=== PATIENT | female | born 1965 | race Caucasian/White ===

== ENCOUNTER 2016-10-24 07:08 | Emergency (ER) | payer OTHER ==
[~2016-10-24] VITALS: Ht 160 cm; Wt 80.2 kg
[~2016-10-24 07:08] MED LIST: BENICAR HCT 201 EACH; COLACE100 MG PO; FLEXERIL10 MG PO; IBUPROFEN200 M1 PO; LEVAQUIN750 MG PO; LOSARTAN-HCTZ1 EACH PO; MOTRIN600 MG PO; MOTRIN800 MG PO; OMEPRAZOLE40 M1 PO; PERCOCET 5/31 TABLET PO; PREDNISONE20 MG PO; RANITIDINE HCL300 MG PO; TAMIFLU75 MG PO; VENTOLIN HFA18 GM IH; VICOPROFEN1 TABLET PO
[2016-10-24 07:46] LABS: HEMATOCRIT 35.9 % (36.0-46.0); MCH 28.1 PG (29.0-34.0); MCHC 33.1 G/DL (30.0-36.0); MCV 84.9 FL (83-99); MEAN PLAT.VOLUME 9.2 uM^3 (9.5-12.4); PLATELET COUNT 268 K/uL (156-360); RBC DIS.WIDTH-CV 12.2 % (11.8-14.6); RBC DIS.WIDTH-SD 37.3 % (39-53); RED BLOOD COUNT 4.23 M/uL (3.80-5.20); WHITE BLOOD COUNT 8.9 K/uL (4.1-10.2)
[2016-10-24 07:56] LABS: CHLORIDE 104 mEq/L (99-109); POTASSIUM 3.6 mEq/L (3.7-5.4); SODIUM 140 mEq/L (136-147)
[2016-10-24 07:58] LABS: GLUCOSE 105 mg/dL (70-99)
[2016-10-24 07:59] LABS: ANION GAP 7 MEQ/L (2-14)
[2016-10-24 08:01] LABS: GFR ESTIMATE (CALCULATED) > 59 mL/min/
[2016-10-24 08:02] LABS: UREA NITROGEN (BUN) 15 mg/dL (9-23)
[2016-10-24 08:07] LABS: TROP-I INTERPRETATION NEGATIVE; TROPONIN-I < 0.01 ng/mL (0.0-0.30)
[2016-10-24] MEDS ORDERED: PREDNISONE20 MG PO (09:00)
[2016-10-24] MEDS ORDERED: HYCODAN SYRUP480 ML PO (09:00)
[2016-10-24] MEDS ORDERED: VENTOLIN HFA18 GM IH (09:00)
[2016-10-24 09:13] VITALS: BP 158/71
== END 2016-10-24 09:14 | disposition home or self-care (01) ==
LOC: EME 07:08
PROVIDERS: Nurse Practitioner Family
DX: J06.9 Acute upper respiratory infection, unspecified (principal); I10 Essential (primary) hypertension
CPT/HCPCS: 71020; 80048; 84484; 85027; 93005; 99281; 99284; J7512

== ENCOUNTER 2017-06-05 22:09 | Emergency (ER) | payer SELFPAY ==
[~2017-06-05] VITALS: Ht 157.5 cm; Wt 77.3 kg
[~2017-06-05 22:09] MED LIST changes: +HYCODAN SYRUP480 ML PO
[2017-06-05 22:52] LABS: HEMATOCRIT 32.8 % (36.0-46.0); MCH 27.5 PG (29.0-34.0); MCHC 32.9 G/DL (30.0-36.0); MCV 83.5 FL (83-99); MEAN PLAT.VOLUME 9.7 uM^3 (9.5-12.4); PLATELET COUNT 232 K/uL (156-360); RBC DIS.WIDTH-CV 11.6 % (11.8-14.6); RBC DIS.WIDTH-SD 34.9 % (39-53); RED BLOOD COUNT 3.93 M/uL (3.80-5.20); WHITE BLOOD COUNT 8.9 K/uL (4.1-10.2)
[2017-06-05 22:59] LABS: CHLORIDE 103 mEq/L (99-109); SODIUM 141 mEq/L (136-147)
[2017-06-05 23:01] LABS: GLUCOSE 117 mg/dL (70-99)
[2017-06-05 23:02] LABS: ANION GAP 8 MEQ/L (2-14)
[2017-06-05 23:03] LABS: TOTAL BILIRUBIN 0.3 mg/dL (0.0-1.0)
[2017-06-05 23:04] LABS: ALKALINE PHOSPHATASE 77 IU/L (3-129)
[2017-06-05 23:05] LABS: GFR ESTIMATE (CALCULATED) > 59 mL/min/
[2017-06-05 23:06] LABS: UREA NITROGEN (BUN) 17 mg/dL (9-23)
[2017-06-05 23:15] LABS: QUANTITATIVE HCG < 4.0 MIU/ML
[2017-06-05 23:28] LABS: ADD MIUA? YES; BILIRUBIN NEGATIVE; BLOOD MODERATE; COLOR YELLOW ((YELLOW)); GLUCOSE (STRIP) NEGATIVE; KETONES NEGATIVE; LEUKOCYTES TRACE; NITRITE NEGATIVE; PROTEIN (STRIP) NEGATIVE; SPECIFIC GRAVITY 1.027 (1.000-1.030)
[2017-06-05 23:33] LABS: BACTERIA NONE SEEN /HPF; EPITHELIAL CELLS RARE /HPF; MUCUS TRACE /LPF; RED BLOOD CELLS 0-5 /HPF (0-5); UCUL ADDED? NO; WHITE BLOOD CELLS 0-5 /HPF (0-5)
[2017-06-06] MEDS ORDERED: ZOFRAN ODT4 MG PO (01:59)
[2017-06-06] MEDS ORDERED: PERCOCET 5/31 TABLET PO (01:59)
[2017-06-06 02:23] VITALS: BP 123/57
== END 2017-06-06 02:24 | disposition home or self-care (01) ==
LOC: EME 22:09
DX: R10.31 Right lower quadrant pain (principal); D25.9 Leiomyoma of uterus, unspecified; I10 Essential (primary) hypertension; Z87.19 Personal history of other diseases of the digestive system
CPT/HCPCS: 74176; 80053; 81003; 84702; 85027; 99281; 99284; J2270; J2405; J7030